=== PATIENT | male | born 1980 ===

== ENCOUNTER 2017-10-02 03:26 | Emergency (ER) | payer OTHER ==
[2017-10-02 04:27] LABS: Hematocrit 45.5 % (35.5-45.6); Hemoglobin 15.5 gm/dl (11.8-15.2); Mean Corpuscular HGB Conc 34 % (32-34); Mean Corpuscular Hemoglobin 31 pg (28-32); Mean Corpuscular Volume 90 fl (84-94); Platelet Count 513 K/mm3 (140-440); Red Blood Count 5.08 M/mm3 (3.65-5.03); Red Cell Distribution Width 13.4 % (13.2-15.2)
--- NOTE | 2017-10-02 05:13 | Emergency Department Report ---
HPI - General Time Seen by Provider: 10/02/17 03:43 - HPI HPI: The patient is a 36-year-old male who presents for evaluation of mental health. The patient has history of bipolar disorder. The patient reports 1 day of constant severe agitation. He states that he feels he loss his mind. The patient presented via local law enforcement after being found to have erratic and beligerent behavior at a [employer] 30 minutes prior to arrival. He admits to being off of Seroquel for the past couple of days. The patient denies fever, headache, unexplained weight loss or weight gain, heat or cold intolerance, skin, hair, or nail changes, neuro deficits, homicidal ideations, or auditory or visual hallucinations. ED Past Medical Hx - Past Medical History Previous Medical History?: Yes Hx Psychiatric Treatment: Yes - Surgical History Past Surgical History?: No - Social History Smoking Status: Current Some Day Smoker Substance Use Type: Cocaine, Marijuana ED Review of Systems ROS: Stated complaint: MH Other details as noted in HPI Constitutional: denies: fever ENT: denies: throat or neck pain Respiratory: denies: cough, shortness of breath Cardiovascular: denies: chest pain Endocrine: denies unexplained weight loss or gain Gastrointestinal: denies: abdominal pain, nausea Genitourinary: denies: dysuria Musculoskeletal: denies: leg swelling Skin: denies: rash Neurological: denies: headache Hematological/Lymphatic: denies: easy bleeding or easy bruising Psych: reports anger and agitation denies sadness or hopelessness Physical Exam - Physical Exam Vital Signs: Vital Signs 10/02/17 03:46 Temperature 98.7 F Pulse Rate 125 H Respiratory 17 Rate Blood Pressure 127/78 O2 Sat by Pulse 96 Oximetry Physical Exam: General: well-nourished, well-developed, no acute distress Head: Normocephalic, atraumatic Eyes: normal sclera ENT: Mucous membranes are pale and dry Neck: No neck stiffness, no cervical adenopathy Respiratory: Breath sounds equal bilaterally, no wheezing, rales, or rhonchi Cardio: S1 and S2 present, no murmurs, rubs, gallops, capillary refill is delayed Abdomen: Normoactive bowel sounds, soft abdomen, no rigidity, no guarding or rebound tenderness Musc: No pitting edema Skin: No rash Neuro: no facial drooping, normal speech Psych: Flat affect, poor insight, patient delusional, depressed mood ED Course Vital Signs 10/02/17 03:46 Temperature 98.7 F Pulse Rate 125 H Respiratory 17 Rate Blood Pressure 127/78 O2 Sat by Pulse 96 Oximetry ED Medical Decision Making - Lab Data Result diagrams: 10/02/17 04:07 10/02/17 04:07 - Medical Decision Making The patient was seen and examined by myself. The patient is placed on a barge pilot and continuous pulse ox. On initial evaluation, the patient was found to be in no distress. Labs are obtained. Lab results exhibited elevated WBC, and otherwise are grossly unremarkable. The patient is medically clear. Mental health is consulted. Mental health evaluates the patient and agrees that the patient is at risk of harm to others and is exhibiting signs of acute halina. A 1013 is completed. The patient will be admitted to a psychiatric facility once bed placement is obtained. Critical care attestation.: If time is entered above; I have spent that time in minutes in the direct care of this critically ill patient, excluding procedure time. ED Disposition Clinical Impression: Dehydration, Bipolar I disorder with halina, At risk of harming others Disposition: DC/TX-65 PSY HOSP/PSY UNIT Is pt being admited?: No Does the pt Need Aspirin: No Condition: Stable Time of Disposition: 05:20
[2017-10-02] MEDS ORDERED: NACL 0.9% 1000 ML 1,000 ML IV ONE (05:18)
[2017-10-02] MEDS ORDERED: MILK OF MAGNESIA PO PRN (05:21)
[2017-10-02] MEDS ORDERED: TYLENOL PO PRN (05:21)
[2017-10-02] MEDS ORDERED: ALUM-MAG HYDROX-SIMETH 200-200-20MG/5ML PO PRN (05:21)
[2017-10-02 06:16] LABS: Total Cells Counted 100
[2017-10-02 06:17] LABS: Anisocytosis 1+; Band Neutrophils # (Manual) 3.4 K/mm3; Basophils % (Manual) 0 % (0.0-1.8); Eosinophils % (Manual) 0 % (0.0-4.3)
[2017-10-02 06:18] LABS: Platelet Estimate Consistent w Auto
[2017-10-02 06:35] LABS: Amorphous Crystals,Urine 1+; Bilirubin,Urine NEG (Negative); Blood,Urine MOD (Negative); Color,Urine Yellow (Yellow); Hyaline Casts,Urine 6 /LPF; Mucus,Urine FEW /HPF; Sperm,Urine 2+ /HPF (NP); Urobilinogen,Urine < 2.0 mg/dL (<2.0)
[2017-10-02 06:38] LABS: Amphetamine Screen,Urine PRESUMPTIVE NEGATIVE; Benzodiazepines Screen,Urine PRESUMPTIVE NEGATIVE; Cannabinoid Screen,Urine PRESUMPTIVE NEGATIVE; Methadone Screen,Urine PRESUMPTIVE NEGATIVE; Opiate Screen,Urine PRESUMPTIVE NEGATIVE
[2017-10-02 06:56] LABS: Cocaine Screen,Urine PRESUMPTIVE POSITIVE
[2017-10-02] MEDS ORDERED: NACL 0.9% 1000 ML 1,000 ML ONE (11:23)
--- NOTE | 2017-10-02 17:19 | Consultation ---
History of Present Illness - Reason for Consult Consult date: 10/02/17 Reason for consult: psychiatric evaluation - Chief Complaint Chief complaint: "You know why I'm here." - History of Present Psychiatric Illness The patient is a 36-year-old male who presents for evaluation of mental health. The patient has history of bipolar disorder and PTSD. The patient reports 1 day of constant severe agitation. The patient presented via local law enforcement after being found to have erratic and belligerent behavior at a [employer] 30 minutes prior to arrival. He admits to being off of Seroquel for the past 2 weeks. He states he also takes zyprexa 30mg hs. He also reports using cocaine daily since being off meds. He reports suicidal ideation and auditory hallucinations prior to arrival. He denies both now. Medications and Allergies Allergies Allergy/AdvReac Type Severity Reaction Status Date / Time No Known Allergies Allergy Verified 10/02/17 11:24 Active Meds: Active Medications Acetaminophen (Tylenol) 650 mg PO Q4HR PRN PRN Reason: Pain MILD(1-3)/Fever >100.5/JAFFE Al Hydrox/Mg Hydrox/Simethicone (Alum-Mag Hydrox-Simeth [id number]/5ml) 30 ml PO Q4HR PRN PRN Reason: Indigestion Magnesium Hydroxide (Milk Of Magnesia) 30 ml PO Q12HR PRN PRN Reason: Constipation Past psychiatric history - Past Medical History Past Medical History: other (overweight) - past Psychiatric treatment and history Psych: Addictions, Bipolar psychiatric treatment history: history of PTSD allergic to depakote - Social History Social history: smoking, other (cocaine use) Mental Status Exam - Vital signs Last Vital Signs Temp 98.4 F 10/02/17 07:39 Pulse 76 10/02/17 07:39 Resp 20 10/02/17 13:47 BP 132/70 10/02/17 07:39 Pulse Ox 97 10/02/17 13:47 - Exam Orientation: time, place, person Affect: depressed, agitated Mood: calm Thought content: other (recent SI. no HI) Thought Process: Intact Perceptions: auditory (recent) Speech: normal rate and pattern Concentration: focused Motor activity: normal Level of consciousness: alert Memory: Intact Sleep Symptoms: Difficulty Falling Asleep Interaction: cooperative Results Result Diagrams: 10/02/17 04:07 10/02/17 04:07 Abnormal lab results 10/02/17 10/02/17 10/02/17 Range/Units 04:07 04:07 04:07 WBC 26.0 H (4.5-11.0) K/mm3 RBC 5.08 H (3.65-5.03) M/mm3 Hgb 15.5 H (11.8-15.2) gm/dl Plt Count 513 H (140-440) K/mm3 Seg Neuts % (Manual) 75.0 H (40.0-70.0) % Lymphocytes % (Manual) 5.0 L (13.4-35.0) % Seg Neutrophils # Man 19.5 H (1.8-7.7) K/mm3 Monocytes # (Manual) 1.8 H (0.0-0.8) K/mm3 Sodium 134 L (137-145) mmol/L Chloride 87.5 L (98-107) mmol/L Carbon Dioxide 19 L (22-30) mmol/L Creatinine 1.6 H (0.8-1.5) mg/dL Glucose 133 H (75-100) mg/dL Urine WBC (Auto) (0.0-6.0) /HPF Salicylates < 0.3 L (2.8-20.0) mg/dL 10/02/17 Range/Units 05:07 WBC (4.5-11.0) K/mm3 RBC (3.65-5.03) M/mm3 Hgb (11.8-15.2) gm/dl Plt Count (140-440) K/mm3 Seg Neuts % (Manual) (40.0-70.0) % Lymphocytes % (Manual) (13.4-35.0) % Seg Neutrophils # Man (1.8-7.7) K/mm3 Monocytes # (Manual) (0.0-0.8) K/mm3 Sodium (137-145) mmol/L Chloride (98-107) mmol/L Carbon Dioxide (22-30) mmol/L Creatinine (0.8-1.5) mg/dL Glucose (75-100) mg/dL Urine WBC (Auto) 13.0 H (0.0-6.0) /HPF Salicylates (2.8-20.0) mg/dL All other labs normal. Assessment and Plan Assessment and plan: Impression: history of bipolar 1, depression vs mixed episode cocaine use disorder r/o substance induced mood/psychotic disorder Medical: Dehydration Recommendation: Restart zyprexa 5mg hs and plan to increase. Side effects discussed, to include weight gain. Continue 1013 and transfer to an inpatient psychiatric facility.
--- NOTE | 2017-10-03 16:31 | Progress Note ---
Subjective - Reason for Consult Consult date: 10/03/17 Reason for consult: follow up - Chief Complaint Chief complaint: "I'm alright." The patient is a 36-year-old male who presents for evaluation of mental health. The patient has history of bipolar disorder and PTSD. The patient reports 1 day of constant severe agitation. The patient presented via local law enforcement after being found to have erratic and belligerent behavior at a [employer] 30 minutes prior to arrival. He admits to being off of Seroquel for the past 2 weeks. He states he also takes zyprexa 30mg hs. He also reports using cocaine daily since being off meds. He reports suicidal ideation and auditory hallucinations prior to arrival. He denies both now. Mental Status Exam - Vital signs Last Vital Signs Temp 98.8 F 10/03/17 09:42 Pulse 76 10/03/17 09:42 Resp 18 10/03/17 09:42 BP 141/78 10/03/17 09:42 Pulse Ox 98 10/02/17 20:53 - Exam Narrative exam: Orientation: time, place, person Affect: depressed, agitated Mood: calm Thought content: no SI, no HI Thought Process: Intact Perceptions: auditory (recent) Speech: normal rate and pattern Concentration: focused Motor activity: normal Level of consciousness: alert Memory: Intact Sleep Symptoms: Difficulty Falling Asleep Interaction: cooperative Assessment and Plan Impression: history of bipolar 1, depression vs mixed episode cocaine use disorder r/o substance induced mood/psychotic disorder Medical: Dehydration Recommendation: Restart zyprexa 5mg hs and plan to increase if indicated. Side effects discussed , to include weight gain. Continue 1013 and transfer to an inpatient psychiatric facility. repeat cbc ordered. WBCs were 26 on arrival. ck ordered
[2017-10-04 05:51] LABS: Basophils % (Auto) 0.6 % (0.0-1.8); Eosinophils # (Auto) 0.1 K/mm3 (0.0-0.4); Eosinophils % (Auto) 1.3 % (0.0-4.3); Hematocrit 43.7 % (35.5-45.6); Hemoglobin 14.7 gm/dl (11.8-15.2); Lymphocytes # (Auto) 2.2 K/mm3 (1.2-5.4); Lymphocytes % (Auto) 33.2 % (13.4-35.0); Mean Corpuscular HGB Conc 34 % (32-34); Mean Corpuscular Hemoglobin 30 pg (28-32); Mean Corpuscular Volume 91 fl (84-94); Monocytes # (Auto) 0.5 K/mm3 (0.0-0.8); Monocytes % (Auto) 7.5 % (0.0-7.3); Platelet Count 447 K/mm3 (140-440); Red Blood Count 4.83 M/mm3 (3.65-5.03); Red Cell Distribution Width 13.7 % (13.2-15.2)
[2017-10-04] MEDS ORDERED: NACL 0.9% 1000 ML 1,000 ML IV ONE ×4 (08:15→15:21)
--- NOTE | 2017-10-04 10:36 | Progress Note ---
Subjective - Reason for Consult Consult date: 10/04/17 Reason for consult: Psychiatry Follow-up - Chief Complaint Chief complaint: "hello" The patient is a 36-year-old male who presents for evaluation of mental health. The patient has an history of bipolar disorder and PTSD. Today the patient is calm and cooperative during the assessment. He stated that he does not feel suicidal "now." He denies HI's and AVH's. He denies any side effects of his medications. He stated that he use cocaine to self medicate to lower his depression. He rate his depression 6/10, with 10 being the worse. Mental Status Exam - Vital signs Last Vital Signs Temp 99.0 F 10/03/17 22:00 Pulse 98 H 10/03/17 22:00 Resp 18 10/03/17 22:00 BP 141/87 10/03/17 22:00 Pulse Ox 96 10/03/17 22:00 - Exam Narrative exam: MSE: Appearance: calm, cooperative Behavior: regular eye contact Speech: regular rate and tone Mood: "okay" withdrawn Affect: congruent to mood Thought Process: circumstantial Thought Content: denies SI/HI's and AVH's Motor Activity: ambulatory Cognition: A/O x3 Insight: variable Judgment: variable Assessment and Plan Impression: Hx of Bipolar DO depression vs mixed episode. Substance Use DO ( cocaine). Today the patient is calm and cooperative during the assessment. Even though the patient is denying SI's, he is withdrawn with poor eye contact. Placement for this patient will continue. CK 1081. Cr 1.6. WBC 6.7. DDx: R/O Substance Induced Mood/Psychotic DO Recommendation/Plan: Continue 1013 with placement to inpatient. Continue Zyprexa 5mg PO HS for mood. Side effects discussed, to include weight gain. Informed the ER Physician the patient's assigned RN about the patient's elevated labs (CK and Cr).
[2017-10-04 11:12] LABS: BUN/Creatinine Ratio 7; Blood Urea Nitrogen 6 mg/dL (9-20); Calcium 8.1 mg/dL (8.4-10.2); Hemolysis Index 5
--- NOTE | 2017-10-04 15:24 | Emergency Department Report ---
Blank Doc - Documentation Documentation: Patient had a CK ordered by psychiatry yesterday that showed an elevation of CK level over 1000 and mild renal insufficiency. Today patient received 2 L of normal saline. Repeat CK and BMP today shows that CK level is trending downward and renal function has improved to normal range. Additional 2 L of normal saline will be provided for persistent high CK although it is trending downward.
--- NOTE | 2017-10-05 12:23 | Progress Note ---
Subjective - Reason for Consult Consult date: 10/05/17 Reason for consult: Psychiatry Follow-up - Chief Complaint Chief complaint: "I want to stop using drugs" The patient is a 36-year-old male who presents for evaluation of mental health. The patient has an history of bipolar disorder and PTSD. Today the patient is calm and cooperative during the assessment. He stated that he would like a referral to another outpatient rehab/psy services when discharged. [facility] He denies SI/HI's and AVH's. He denies any side effects of his medications. Mental Status Exam - Vital signs Last Vital Signs Temp 97.9 F 10/05/17 08:43 Pulse 91 H 10/05/17 08:43 Resp 14 10/05/17 08:43 BP 120/79 10/05/17 08:43 Pulse Ox 98 10/05/17 08:43 - Exam Narrative exam: MSE: Appearance: calm, cooperative Behavior: regular eye contact Speech: regular rate and tone Mood: "okay" Affect: congruent to mood Thought Process: circumstantial Thought Content: denies SI/HI's and AVH's Motor Activity: ambulatory Cognition: A/O x3 Insight: fair Judgment: fair Assessment and Plan Impression: Hx of Bipolar DO depression vs mixed episode. Substance Use DO ( cocaine). Today the patient is calm and cooperative during the assessment. CK 953. Cr 0.9. WBC 6.7. DDx: R/O Substance Induced Mood/Psychotic DO Recommendation/Plan: Evaluate 1013 in 24 hours to determine proper dispo. Continue Zyprexa 5 mg PO HS for mood. Side effects discussed, to include weight gain. The patient can follow up with the [facility] for rehab/outpatient psy services. Also, the patient can follow up with [facility] for outpatient psy/rehab services.
[2017-10-06 11:28] LABS: Basophils # (Auto) 0.1 K/mm3 (0.0-0.1); Basophils % (Auto) 1.1 % (0.0-1.8); Eosinophils % (Auto) 0.7 % (0.0-4.3); Hematocrit 43.1 % (35.5-45.6); Hemoglobin 14.6 gm/dl (11.8-15.2); Lymphocytes # (Auto) 1.4 K/mm3 (1.2-5.4); Lymphocytes % (Auto) 25.6 % (13.4-35.0); Mean Corpuscular HGB Conc 34 % (32-34); Mean Corpuscular Hemoglobin 31 pg (28-32); Mean Corpuscular Volume 90 fl (84-94); Monocytes # (Auto) 0.6 K/mm3 (0.0-0.8); Monocytes % (Auto) 11.6 % (0.0-7.3); Platelet Count 413 K/mm3 (140-440); Red Blood Count 4.77 M/mm3 (3.65-5.03); Red Cell Distribution Width 13.7 % (13.2-15.2)
--- NOTE | 2017-10-07 12:08 | Progress Note ---
Subjective - Reason for Consult Consult date: 10/07/17 Reason for consult: Psychiatry Follow-up - Chief Complaint Chief complaint: "Hello" The patient is a 36-year-old male who presents for evaluation of mental health. The patient has an history of bipolar disorder and PTSD. Today the patient is calm and cooperative during the assessment. He stated that he does not feel like himself "mentally" today. He stated that he could not explain why he feels this way when asked. He denies SI/HI's and AVH's. He did state that he didn't sleep well last night. He denies any side effects of his medications. Mental Status Exam - Vital signs Last Vital Signs Temp 98.7 F 10/07/17 11:15 Pulse 98 H 10/07/17 10:56 Resp 16 10/07/17 10:56 BP 140/88 10/07/17 10:56 Pulse Ox 99 10/07/17 10:56 - Exam Narrative exam: MSE: Appearance: calm, cooperative Behavior: regular eye contact Speech: regular rate and tone Mood: "okay" Affect: congruent to mood Thought Process: circumstantial Thought Content: denies SI/HI's and AVH's Motor Activity: ambulatory Cognition: A/O x3 Insight: fair Judgment: fair Assessment and Plan Impression: Hx of Bipolar DO depression vs mixed episode. Substance Use DO ( cocaine). Today the patient is calm and cooperative during the assessment. CK 953. Cr 0.9. WBC 6.7. DDx: R/O Substance Induced Mood/Psychotic DO Recommendation/Plan: Evaluate 1013 in 24 hours to determine proper dispo. Modify Zyprexa to 10 mg PO HS for mood. Side effects discussed, to include weight gain. The patient can follow up with [facility] for [facility]patient psy services. Also, the patient can follow up with [facility] for outpatient psy/rehab services.
--- NOTE | 2017-10-08 14:13 | Progress Note ---
Subjective - Reason for Consult Consult date: 10/08/17 Reason for consult: Psychiatry Follow-up - Chief Complaint Chief complaint: "I don't know what's wrong with me" The patient is a 36-year-old male who presents for evaluation of mental health. The patient has an history of bipolar disorder and PTSD. Today the patient is calm, but vague during the assessment. He stated that he cannot explain how he feel. He would not confirm or deny SI's when asked. He denies HI's and AVH's. He denies any side effects of his medication. Mental Status Exam - Vital signs Last Vital Signs Temp 98.7 F 10/08/17 13:37 Pulse 101 H 10/08/17 13:37 Resp 20 10/08/17 13:37 BP 133/84 10/08/17 13:37 Pulse Ox 99 10/08/17 13:37 - Exam Narrative exam: MSE: Appearance: calm Behavior: regular eye contact Speech: regular rate and tone Mood: "don't feel well mentally" withdrawn Affect: congruent to mood Thought Process: circumstantial Thought Content: denies HI's and AVH's, would not confirm or deny SI's Motor Activity: ambulatory Cognition: A/O x3 Insight: variable Judgment: variable Assessment and Plan Impression: Hx of Bipolar DO depression vs mixed episode. Substance Use DO ( cocaine). Today the patient is calm, but vague during the assessment. The patient cannot confirm or deny SI's. DDx: R/O Substance Induced Mood/Psychotic DO Recommendation/Plan: Continue 1013 with placement to inpatient psy services. The patient's 1013 expires tomorrow. Reassess in 24 hours to determine if the 1013 will need to be extended. Continue Zyprexa 10 mg PO HS for mood. Side effects discussed, to include weight gain.
--- NOTE | 2017-10-09 17:26 | Progress Note ---
Subjective - Reason for Consult Consult date: 10/09/17 Reason for consult: follow up - Chief Complaint Chief complaint: "I'm doing better." The patient is a 36-year-old male who presented for evaluation of mental health. The patient has an history of bipolar disorder and PTSD. Today the patient is calm and reports he is feeling better. He denies SI, HI's and AVH' s. He denies any side effects of his medication. Staff report no behavioral disturbances. Mental Status Exam - Vital signs Last Vital Signs Temp 97.6 F 10/09/17 13:03 Pulse 96 H 10/09/17 13:03 Resp 18 10/09/17 13:03 BP 129/80 10/09/17 13:03 Pulse Ox 98 10/09/17 13:03 - Exam Narrative exam: MSE: Appearance: calm Behavior: regular eye contact Speech: regular rate and tone Mood: "okay" Affect: constricted Thought Process: circumstantial Thought Content: no SI/HI. no AVH Motor Activity: ambulatory Cognition: A/O x3 Insight: variable Judgment: variable Assessment and Plan Impression: Hx of Bipolar DO depression vs mixed episode. Substance Use DO ( cocaine). No acute safety concerns were identified. DDx: R/O Substance Induced Mood/Psychotic DO Recommendation/Plan: Do not renew 1013. No acute safety concerns were identified. He is recommended to seek outpatient treatment at the [facility] as he plans. He is recommended to continue Zyprexa 10 mg PO HS for mood.
[2017-10-11 07:47] VITALS: BP 128/89
--- NOTE | 2017-10-11 10:33 | Progress Note ---
Subjective - Reason for Consult Consult date: 10/11/17 Reason for consult: Psychiatry Follow-up - Chief Complaint Chief complaint: "Can I leave" The patient is a 36-year-old male who presented for evaluation of mental health. The patient has an history of bipolar disorder and PTSD. Today the patient is calm and cooperative during the assessment. He denies SI/HI's and AVH 's. He denies any side effects of his medication. The staff report no behavioral disturbances overnight. Mental Status Exam - Vital signs Last Vital Signs Temp 98.8 F 10/11/17 07:42 Pulse 90 10/11/17 07:42 Resp 16 10/11/17 07:42 BP 128/89 10/11/17 07:42 Pulse Ox 99 10/11/17 07:42 - Exam Narrative exam: MSE: Appearance: calm, cooperative Behavior: regular eye contact Speech: regular rate and tone Mood: "okay" Affect: congruent to mood Thought Process: linear Thought Content: denies SI/HI's and AVH's Motor Activity: ambulatory Cognition: A/O x3 Insight: fair Judgment: fair Assessment and Plan Impression: Hx of Bipolar DO depression vs mixed episode. Substance Use DO ( cocaine). Today the patient is calm and cooperative during the assessment. DDx: R/O Substance Induced Mood/Psychotic DO Recommendation/Plan: The patient's 1013 10/09/2017. Continue Zyprexa 10 mg PO HS for mood. Side effects discussed, to include weight gain. The patient can follow up with the [facility] for outpatient psy services.
--- NOTE | 2017-10-11 19:29 | Progress Note ---
Subjective - Reason for Consult Consult date: 10/06/17 Reason for consult: Psychiatric Follow-up Evaluation - Chief Complaint Chief complaint: " I'm feeling good. " Graeme is a 36-year-old male who presents with a PPHx of Bipolar Disorder and PTSD. Today, patient presents depressed. He endorses intermittent suicidal ideations related to past events. He states " I wish I would've done things differently." He reports medication compliance. He denies SI/HI, A/VH, and delusions. He reports medication compliance. He believes medication is partially effective. He denies side effects. Mental Status Exam - Vital signs Last Vital Signs Temp 98.8 F 10/11/17 07:42 Pulse 90 10/11/17 07:42 Resp 16 10/11/17 07:42 BP 128/89 10/11/17 07:42 Pulse Ox 99 10/11/17 07:42 - Exam Narrative exam: Mental Status Exam General Appearance: Casually dressed-hospital gown Attitude/Behavior: Cooperative Sensorium: Clear Orientation: Alert and oriented x 3 Mood: "Good" Affect: Constricted Speech/Language: Normal rate and tone Thought Process: Organized Thought Content: Intermittent Paranoia Perception: WNL-pt denies Concentration/Attention: Impaired Concentration Memory: Intact Suicidal Ideation/Plan: + suicidal ideation. No plan Homicidal Ideation/Plan: "No." Patient denies. Assessment and Plan Impression: Hx of Bipolar DO depression vs mixed episode. Substance Use DO ( cocaine). Today patient presents anxious but cooperative and compliant during the assessment. He endorses SI ideation with no plan. He denies HI and A/VH. DDx: R/O Substance Induced Mood/Psychotic DO Recommendation/Plan: 1. Continue medications and current treatment plan. 2. Continue 1013. The patient's 1013 10/09/2017. 3. Aide with outpatient psychiatric follow-up.
== END 2017-10-11 10:46 | disposition home or self-care (01) ==
LOC: ED 03:26 → EEVIPCON 03:26 → ED 10-11 10:46
DX: F31.10 Bipolar disorder, current episode manic without psychotic features, unspecified (principal); E86.0 Dehydration; F17.200 Nicotine dependence, unspecified, uncomplicated; F12.10 Cannabis abuse, uncomplicated; F14.10 Cocaine abuse, uncomplicated
CPT/HCPCS: 36415; 80048; 80307; 81001; 82550; 85007; 85025; 96360; 96361; 99285; G0480; J7030; 80320